=== PATIENT | female | born 1985 | race Caucasian/White ===

== ENCOUNTER → 2018-06-21 | Outpatient (CLI) | payer OTHER | END | disposition home or self-care (01) | LOC: LABWHC1 12:43 | PROVIDERS: ATTEND Obstetrics & Gynecology | DX: Z34.90 Encounter for supervision of normal pregnancy, unspecified, unspecified trimester (principal); Z3A.00 Weeks of gestation of pregnancy not specified | CPT/HCPCS: 36415; 82950 ==

== ENCOUNTER → 2018-07-05 | Outpatient (CLI) | payer OTHER ==
[2018-07-05 12:23] LABS: Glucose 3 Hour, Gest 106 mg/dL
== END | disposition home or self-care (01) ==
LOC: LABWHC1 08:02
PROVIDERS: ATTEND Obstetrics & Gynecology
DX: O99.810 Abnormal glucose complicating pregnancy (principal); Z3A.00 Weeks of gestation of pregnancy not specified
CPT/HCPCS: 36415; 82951; 82952

== ENCOUNTER 2018-09-07 06:09 | Inpatient (IN) | payer OTHER ==
[2018-09-07] MEDS ORDERED: CARBOPROST TROMETHAMINE 250 MCG/ML 1 ML AMP IM PRN (06:31)
[2018-09-07] MEDS ORDERED: OXYTOCIN 10 UNIT/ML 1 ML VIAL IM PRN (06:31)
[2018-09-07] MEDS ORDERED: LIDOCAINE 0.5% (PF) 5 MG/ML (50 ML SDV) SQ PRN (06:31)
[2018-09-07] MEDS ORDERED: TERBUTALINE 1 MG/ML VIAL SQ PRN (06:31)
[2018-09-07] MEDS ORDERED: METHYLERGONOVINE 0.2 MG/ML 1 ML AMP IM PRN (06:31)
[2018-09-07] MEDS ORDERED: OXYTOCIN 20 UNITS/1000 ML NS 1,000 ML IV SCH (06:45)
[2018-09-07] MEDS: LACTATED RINGERS 1,000 ML IV SCH ×3 (06:55→22:19)
[2018-09-07 07:15] LABS: Basophils % (A) 0 %; Eosinophils # (A) 0.2 k/uL (0-0.7); Eosinophils % (A) 1 %; HCT 33.6 % (34.0-46.0); HGB 11.8 gm/dL (11.4-16.0); Lymphocytes # (A) 2.3 k/uL (1.0-4.8); Lymphocytes % (A) 21 %; MCH 30.4 pg (25.0-35.0); MCHC 35.2 g/dL (31.0-37.0); MCV 86.4 fL (80.0-100.0); Mean Platelet Volume 8.6; Monocytes # (A) 0.3 k/uL (0-1.0); Monocytes % (A) 3 %; Neutrophils % (A) 74 %; Platelet Count 168 k/uL (150-450); RBC 3.89 m/uL (3.80-5.40); RDW 14.2 % (11.5-15.5); WBC 10.9 k/uL (3.8-10.6)
[2018-09-07 07:16] VITALS: BMI 34.3
--- NOTE | 2018-09-07 07:44 | P.HPOB ---
History of Present Illness H&P Date: 09/07/18 This is a 33-year-old white female 1 para 0 EDC 09/11/2018 at 39-3/7 weeks' gestation. Patient presents today for induction of labor with reasonably favorable cervix, mildly elevated blood pressures for the past several days. She denies headache visual changes or right upper quadrant pain. Fetus is been active throughout the . Past medical history is significant for "white coat syndrome" with high blood pressures noted in physician offices. She has a history of asthma and depression. Past surgical history breast reconstruction 2002, LEEP procedure 2003, oral surgery 2015. Current medications albuterol inhaler as needed, vitamin daily. ALLERGIES include lactose intolerance, no known medical ALLERGIES. Social history patient is single, she is employed, she lives locally, she has never been a tobacco smoker. She denies alcohol or drug use. Obstetric history is significant for single umbilical artery. Blood type O positive, rubella status immune. VDRL testing, Pap smear, urine culture, gonorrhea and chlamydia cultures, hepatitis B surface antigen, HIV testing all negative. One-hour Glucola elevated, three-hour GTT within normal limits. On exam this is a pleasant young female who is quite anxious, she is 5 foot 4 inches, 200 pounds, blood pressure 143/93 on admission, pulse 92, afebrile. The general physical exam is within normal limits. The chest is clear in all corcoran. Extremities reveal trace edema. Reflexes are normal to plus. Cervix is 3 cm dilated, 60-70% effaced, rather posterior, vertex presentation, -2, soft. Artificial amniorrhexis reveals clear fluid. heart rate is in the 140s with accelerations, consistent with reactive NST. Impression: Advanced maternal age, single umbilical artery, mild hypertension, 39-3/7 weeks intrauterine with reasonably favorable cervix. Plan: Oxytocin per hospital protocol. Close maternal and surveillance. Epidural and or Stadol options have been reviewed with the patient. Anticipate normal spontaneous vaginal delivery. Review of Systems Negative except as in HPI. Constitutional: Reports as per HPI Past Medical History Past Medical History: No Reported History, Asthma Additional Past Medical History / Comment(s): Anxiety History of Any Multi-Drug Resistant Organisms: None Reported Additional Past Surgical History / Comment(s): "breast reduction when young", LEEP Past Anesthesia/Blood Transfusion Reactions: No Reported Reaction Past Psychological History: No Psychological Hx Reported Smoking Status: Never smoker Past Drug Use History: None Reported - Past Family History Mother Family Medical History: Hypertension Father Family Medical History: Cancer Medications and Allergies Home Medications Medication Instructions Recorded Confirmed Type Albuterol Inhaler [Ventolin Hfa .ROUTE 09/07/18 History Inhaler] Ferrous Sulfate [Feosol] 325 mg PO DAILY 09/07/18 09/07/18 History Pnv,Calcium 72/Iron/Folic Acid 1 cap PO DAILY 09/07/18 09/07/18 History [ Plus Tablet] Allergies Allergy/AdvReac Type Severity Reaction Status Date / Time No Known Allergies Allergy Verified 09/07/18 06:24 Exam Vital Signs Temp Pulse Resp BP 09/07/18 06:23 97.4 F L 84 16 143/93 Intake and Output 09/06/18 09/07/18 09/07/18 22:59 06:59 14:59 Other: Weight 90.718 kg C exam under HPI please Results Result Diagrams: 09/07/18 06:45 Abnormal Lab Results - Last 24 Hours (Table) 09/07/18 Range/Units 06:45 WBC 10.9 H (3.8-10.6) k/uL Hct 33.6 L (34.0-46.0) % Neutrophils # 8.0 H (1.3-7.7) k/uL Assessment and Plan Assessment: 39-3/7 weeks intrauterine , mild hypertension, single umbilical artery , advanced maternal age, reasonably favorable cervix. Plan: Oxytocin per hospital protocol. Close maternal and surveillance. Anticipating normal spontaneous vaginal delivery. Time with Patient: Less than 30
[2018-09-07 08:55] LABS: Uric Acid 4.6 mg/dL (3.7-7.4)
[2018-09-07 08:56] LABS: INR 1.1 (<1.2); Partial Thromboplastin Time 25.2 sec (22.0-30.0); Prothrombin Time 10.7 sec (9.0-12.0)
[2018-09-07] MEDS ORDERED: ROPIVACAINE 100 MG, fentaNYL (PF) 200 MCG in SODIUM CHLORIDE 0.9% 76 ML EPIDURAL ONE (15:49)
[2018-09-07] MEDS ORDERED: ceFAZolin IN SWFI 2 GM/20 ML SYRINGE IVP STA (17:40)
[2018-09-07] MEDS ORDERED: fentaNYL (PF) 50 MCG/ML 2 ML AMP ONE ×2 (17:43)
[2018-09-07] MEDS ORDERED: ONDANSETRON 4 MG/2 ML VIAL ONE (17:43)
[2018-09-07] MEDS ORDERED: CHLOROPROCAINE 3% 30 MG/ML 20 ML VIAL ONE (17:43)
[2018-09-07] MEDS ORDERED: MORPHINE SULFATE (PF) 0.3 MG/0.3 ML SYR ONE ×2 (17:43)
[2018-09-07] MEDS ORDERED: ePHEDrine SULFATE/0.9% NACL/PF 50 MG/5 ML SYRINGE IV ONE (17:43)
[2018-09-07] MEDS ORDERED: KETOROLAC 30 MG/ML 1 ML VIAL ONE (17:43)
[2018-09-07] MEDS ORDERED: KETOROLAC 30 MG/ML 1 ML VIAL IVP PRN (18:37)
[2018-09-07] MEDS ORDERED: NALBUPHINE 10 MG/ML VIAL (10ML MDV) IV PRN (18:37)
[2018-09-07] MEDS ORDERED: diphenhydrAMINE 50 MG/ML 1 ML VIAL IVP PRN ×3 (18:37→18:43)
[2018-09-07] MEDS ORDERED: ONDANSETRON 4 MG/2 ML VIAL IVP PRN ×2 (18:37)
[2018-09-07] MEDS ORDERED: diphenhydrAMINE 25 MG CAP PO PRN (18:37)
[2018-09-07] MEDS ORDERED: NALOXONE 0.4 MG/ML 1 ML VIAL IV PRN ×2 (18:37)
[2018-09-07] MEDS ORDERED: ZOLPIDEM 5 MG TAB PO PRN (18:37)
[2018-09-07] MEDS ORDERED: METOCLOPRAMIDE 5 MG/ML 2 ML VIAL IVP PRN (18:37)
[2018-09-07] MEDS ORDERED: diphenhydrAMINE 50 MG CAP PO PRN (18:37)
--- NOTE | 2018-09-07 18:37 | P.OP ---
Date of Procedure: 09/07/18 Preoperative Diagnosis: Arrest of descent at -3 station, single umbilical artery, advanced maternal age , 39-3/7 weeks' gestation, mild hypertension Postoperative Diagnosis: Left occiput transverse position, nuchal cord 2. Procedure(s) Performed: Primary low transverse section Anesthesia: epidural Surgeon: Breann Gage Neurology Technician #1: Taylor Barber Estimated Blood Loss (ml): 600 IV fluids (ml): 600 Urine output (ml): 250 Pathology: other (Placenta) Condition: stable Disposition: PACU Description of Procedure: Arrest of descent is noted, with dilatation also arrested at 5 cm. After several hours of continued observation, decision is made to proceed with primary low transverse section. Antibiotics are given. Epidural is topped off. West catheter placed to direct drainage. The appropriate timeout is performed to assure proper patient and procedural identification. Patient is brought to the operating room and placed in the dorsal supine position with left lateral uterine displacement. The abdomen is prepped and draped in usual sterile fashion. The analgesia is checked and noted to be adequate. A low transverse skin incision is made in this is carried down through the subcutaneous tissue. The fascia is isolated, scored, and extended bilaterally with curved Sigala scissors. Peritoneum is next identified and incised, there is no bowel or bladder involvement. Bladder flap is placed over the dome of the bladder and at all times the bladder is Well from the operative field to avoid bladder and/or ureteral injury. A low transverse uterine incision is made in this is extended with blunt dissection. 's head is delivered in the left occiput transverse position. There is a nuchal cord 2 noted. The patient is officially delivered of a liveborn male at 1800 hrs. The umbilical cord is doubly clamped and ligated, he is handed to waiting nurses for evaluation where scores of 9 and 9 at one and 5 minutes respectively are given. The placenta is delivered manually, it is inspected and noted to be intact with trivascular cord at 1801 hrs. At this time uterus is externalized. Oxytocin is given. Uterus is swept clean with a sterile sponge to avoid any retained products of conception. The uterus is closed in a two-step fashion, first layer running locking, second layer imbricated. Excellent hemostasis is noted. Bilateral tubes and ovaries are inspected and noted to be normal. The uterus abdominal cavity after the abdomen is suctioned with suction on guard. Bilateral gutters are inspected and cleaned. Incision is once again visualized and noted to be hemostatically intact, well approximated, clean and dry. The peritoneum was allowed to close by secondary intention. The fascia is closed in a running stitch of 0 Vicryl suture with over ligation in the midline. Subcutaneous tissue is irrigated, noted to be clean and dry. It is reapproximated with 3-0 Vicryl in a running fashion. 4-0 undyed Vicryl issues for final skin closure. Steri-Strips and Mastisol are applied to the wound. All sponge needle and enhancement counts are correct at the end of the procedure. weighs 7 lbs. 5 oz. Vital signs are stable after the procedure including pulse of 90, blood pressure 133/80, West catheter noted to be draining clear urine. Patient and her are allowed to begin the bonding experience in the LDR. Placenta will be sent to pathology secondary to two-vessel cord. The patient and her are declining circumcision further infant son.
[2018-09-07] MEDS: SENNOSIDES-DOCUSATE SODIUM 1 EACH TAB PO SCH (21:59)
[2018-09-08] MEDS: KETOROLAC 30 MG/ML 1 ML VIAL IVP PRN ×3 (02:46→15:50)
[2018-09-08] MEDS: LACTATED RINGERS 1,000 ML IV SCH (02:47)
[2018-09-08 06:02] LABS: Basophils % (A) 0 %; Eosinophils # (A) 0.1 k/uL (0-0.7); Eosinophils % (A) 0 %; HCT 25.6 % (34.0-46.0); Lymphocytes # (A) 1.8 k/uL (1.0-4.8); Lymphocytes % (A) 15 %; MCH 31.2 pg (25.0-35.0); MCHC 35.4 g/dL (31.0-37.0); Mean Platelet Volume 9.1; Monocytes # (A) 0.4 k/uL (0-1.0); Monocytes % (A) 4 %; Neutrophils # (A) 9.4 k/uL (1.3-7.7); Neutrophils % (A) 80 %; Platelet Count 145 k/uL (150-450); RBC 2.91 m/uL (3.80-5.40); RDW 14.3 % (11.5-15.5); WBC 11.7 k/uL (3.8-10.6)
[2018-09-08 06:05] LABS: HGB 9.1 gm/dL (11.4-16.0)
--- NOTE | 2018-09-08 07:05 | P.PN ---
Progress Note - Text Postop day 1 from under spinal anesthesia with epidural morphine given for postop pain management. Patient is doing well. Pain is well controlled. On visual analog scale 3/10 Mild itching present No nausea or vomiting reported. No Headache or weakness and numbness in the legs. No complications from epidural anesthesia/analgesia.
[2018-09-08] MEDS: SENNOSIDES-DOCUSATE SODIUM 1 EACH TAB PO SCH ×2 (08:50→22:42)
--- NOTE | 2018-09-08 11:04 | P.PN ---
Subjective Progress Note Date: 09/08/18 Principal diagnosis: Postoperative day #1 Slept well. Minimal to moderate lochia rubra. Pain well controlled. Ambulating and voiding without difficulties Objective - Vital Signs Vital signs: Vital Signs Temp 97.7 F 09/08/18 08:00 Pulse 100 09/08/18 08:00 Resp 16 09/08/18 09:00 BP 138/74 09/08/18 08:00 Pulse Ox 99 09/08/18 08:00 Intake & Output 09/07/18 09/08/18 09/08/18 18:59 06:59 18:59 Output Total 1000 1650 Balance -1000 -1650 Output: Urine 400 1050 Uretheral (West) 600 Estimated Blood Loss 600 600 Other: # Voids 1 - Constitutional General appearance: Present: average body habitus, cooperative - EENT Eyes: Present: PERRLA ENT: Present: hearing grossly normal - Neck Neck: Present: normal ROM - Respiratory Respiratory: bilateral: CTA - Cardiovascular Rhythm: regular - Gastrointestinal Gastrointestinal Comment(s): Incision clean and dry, intact, Steri-Strips applied. Fundus firm, midline, symmetric, 18 week size. - Integumentary Integumentary: Present: normal - Neurologic Neurologic: Present: CNII-XII intact - Musculoskeletal Musculoskeletal: Present: gait normal - Psychiatric Psychiatric: Present: A&O x's 3, appropriate affect, intact judgment & insight - Labs CBC & Chem 7: 09/08/18 05:45 Labs: Abnormal Lab Results - Last 24 Hours (Table) 09/08/18 Range/Units 05:45 WBC 11.7 H (3.8-10.6) k/uL RBC 2.91 L (3.80-5.40) m/uL Hgb 9.1 L D (11.4-16.0) gm/dL Hct 25.6 L (34.0-46.0) % Plt Count 145 L (150-450) k/uL Neutrophils # 9.4 H (1.3-7.7) k/uL Assessment and Plan Assessment: Doing well day #1 Plan: Advance to regular diet. May DC IV. Begin ferrous sulfate twice daily. May shower. Likely discharge home tomorrow. Patient and her declining option for circumcision. Time with Patient: Less than 30
[2018-09-08] MEDS: HYDROcodone/APAP 5-325MG 1 EACH TAB PO PRN ×2 (12:49→18:44)
[2018-09-08] MEDS: FERROUS SULFATE 325 MG TAB PO SCH (16:00)
[2018-09-08] MEDS: IBUPROFEN 600 MG TAB PO PRN (22:40)
[2018-09-09] MEDS: HYDROcodone/APAP 5-325MG 1 EACH TAB PO PRN ×4 (02:08→23:45)
[2018-09-09] MEDS: SENNOSIDES-DOCUSATE SODIUM 1 EACH TAB PO SCH ×2 (07:59→23:45)
--- NOTE | 2018-09-09 10:22 | P.PNOBGPC ---
Subjective - Subjective Patient reports: Reports appetite normal, Reports voiding normally, Reports pain well controlled, Reports ambulating normally : doing well, other (Having some difficulty with nursing) Objective - Vital Signs Latest vital signs: Vital Signs Temp Pulse Resp BP Pulse Ox 09/09/18 08:00 98.1 F 80 15 150/78 09/09/18 00:00 98.2 F 78 15 149/84 09/08/18 15:37 97.8 F 80 16 145/73 09/08/18 14:00 97.8 F 80 16 145/73 98 09/08/18 12:00 89 16 134/72 - Exam Extremities: Present: normal Abdomen: Present: normal appearance, soft. Absent: distention, tenderness Incision: Present: normal, dry, intact Uterus: Present: normal, firm (Uterine fundus as tonic and appropriately tender just below the umbilicus.) Assessment and Plan (1) Status post section Current Visit: Yes Status: Acute Code(s): Z98.891 - HISTORY OF UTERINE SCAR FROM PREVIOUS SURGERY SNOMED Code(s): 081865784 Plan: Continue routine and postoperative care. Possible discharge home tomorrow pending progress with breast-feeding. I have encouraged her to ambulate in the hallways routinely.
[2018-09-09] MEDS: IBUPROFEN 600 MG TAB PO PRN ×2 (12:14→22:06)
[2018-09-09] MEDS: FERROUS SULFATE 325 MG TAB PO SCH ×2 (12:17→17:42)
[2018-09-09] MEDS: LABETALOL 100 MG TAB PO SCH (17:43)
[2018-09-09 23:56] LABS: Basophils % (A) 0 %; Eosinophils # (A) 0.1 k/uL (0-0.7); Eosinophils % (A) 1 %; HGB 8.7 gm/dL (11.4-16.0); Lymphocytes # (A) 1.3 k/uL (1.0-4.8); Lymphocytes % (A) 10 %; MCH 29.9 pg (25.0-35.0); MCHC 33.5 g/dL (31.0-37.0); MCV 89.1 fL (80.0-100.0); Mean Platelet Volume 8.7; Monocytes # (A) 0.3 k/uL (0-1.0); Monocytes % (A) 3 %; Neutrophils # (A) 10.9 k/uL (1.3-7.7); Neutrophils % (A) 86 %; Platelet Count 172 k/uL (150-450); RBC 2.92 m/uL (3.80-5.40); RDW 14.4 % (11.5-15.5); WBC 12.8 k/uL (3.8-10.6)
[2018-09-10] MEDS: LABETALOL 100 MG TAB PO SCH ×2 (08:14→21:09)
[2018-09-10] MEDS: HYDROcodone/APAP 5-325MG 1 EACH TAB PO PRN ×3 (08:15→21:12)
[2018-09-10] MEDS: FERROUS SULFATE 325 MG TAB PO SCH ×2 (08:15→21:09)
--- NOTE | 2018-09-10 11:46 | P.PNOBGPC ---
Subjective - Subjective Interval history: Fever and generalized malaise from last evening have resolved. Denies any further symptoms of fever. Patient reports: Reports appetite normal, Reports voiding normally, Reports pain well controlled, Reports ambulating normally [place]: doing well Objective - Vital Signs Latest vital signs: Vital Signs Temp Pulse Resp BP BP Pulse Ox 09/10/18 08:00 97.8 F 79 15 143/77 09/10/18 02:00 99.7 F H 09/09/18 23:00 101.3 F H 96 15 164/85 98 09/09/18 22:07 100.5 F H 09/09/18 17:00 168/101 165/93 09/09/18 16:45 98.9 F 84 15 156/83 100 - Exam Extremities: Present: normal Abdomen: Present: normal appearance, soft. Absent: distention, tenderness Incision: Present: normal, dry, intact Uterus: Present: normal, firm (The uterine fundus as tonic and appropriately tender below the umbilicus.) - Labs Labs: Abnormal Lab Results - Last 24 Hours (Table) 09/09/18 Range/Units 23:44 WBC 12.8 H (3.8-10.6) k/uL RBC 2.92 L (3.80-5.40) m/uL Hgb 8.7 L (11.4-16.0) gm/dL Hct 26.0 L (34.0-46.0) % Neutrophils # 10.9 H (1.3-7.7) k/uL Assessment and Plan (1) Status post section Current Visit: Yes Status: Acute Code(s): Z98.891 - HISTORY OF UTERINE SCAR FROM PREVIOUS SURGERY SNOMED Code(s): 185866505 Plan: The patient's fever last evening is likely to be attributed to either a viral syndrome that has resolved or perhaps the earliest signs of her milk coming in. In either case, white count was normal and no further symptoms exist at this time. The infant is to remain in the hospital for the diagnosis of jaundice. As result, the patient is requesting to remain in the hospital for the fourth day allowed after . She will be discharged home tomorrow pending no complications. Otherwise continue routine postoperative care.
[2018-09-10] MEDS: IBUPROFEN 600 MG TAB PO PRN (19:37)
[2018-09-10] MEDS: SENNOSIDES-DOCUSATE SODIUM 1 EACH TAB PO SCH (23:13)
[2018-09-11] MEDS ORDERED: LABETALOL 200 MG TAB PO STA (04:12)
[2018-09-11] MEDS: SENNOSIDES-DOCUSATE SODIUM 1 EACH TAB PO SCH ×3 (04:13→21:00)
[2018-09-11] MEDS: LABETALOL 100 MG TAB PO SCH (04:27)
[2018-09-11] MEDS: LABETALOL 200 MG TAB PO SCH ×2 (07:49→21:02)
--- NOTE | 2018-09-11 07:58 | P.PN ---
Subjective Progress Note Date: 09/11/18 Principal diagnosis: Postoperative day #4. Patient has complained of a headache and off through the weekend. Blood pressure this morning elevated. No headache this morning, no visual changes or right upper quadrant pain. Major complaint is fatigue. Objective - Vital Signs Vital signs: Vital Signs Temp 98.0 F 09/11/18 00:00 Pulse 74 09/11/18 00:00 Resp 16 09/11/18 00:00 BP 147/81 09/11/18 04:00 Pulse Ox 98 09/09/18 23:00 - Constitutional General appearance: Present: average body habitus, cooperative - EENT ENT: Present: hearing grossly normal - Respiratory Respiratory: bilateral: CTA - Cardiovascular Rhythm: regular - Gastrointestinal Gastrointestinal Comment(s): Fundus firm and in the midline, symmetric and 18 week size, nontender. Incision clean and dry, well approximated. - Integumentary Integumentary: Present: normal - Neurologic Neurologic: Present: CNII-XII intact - Musculoskeletal Musculoskeletal Comment(s): Reflexes +1, no peripheral edema. Musculoskeletal: Present: gait normal, strength equal bilaterally - Psychiatric Psychiatric: Present: A&O x's 3, appropriate affect, intact judgment & insight - Labs CBC & Chem 7: 09/09/18 23:44 Assessment and Plan Assessment: Postoperative day #4. Continued hypertension. Plan: We will increase labetalol dose at this time to 200 mg twice a day. Continue care. Possible discharge home tomorrow pending blood pressure. Ferrous sulfate twice daily for postoperative anemia. Time with Patient: Less than 30
[2018-09-11] MEDS: ACETAMINOPHEN TAB 325 MG TAB PO PRN (08:16)
[2018-09-11] MEDS: FERROUS SULFATE 325 MG TAB PO SCH ×2 (14:04→20:59)
[2018-09-11] MEDS: HYDROcodone/APAP 5-325MG 1 EACH TAB PO PRN (14:05)
[2018-09-11] MEDS ORDERED: hydrALAZINE HCL 20 MG/ML 1 ML VIAL IVP PRN (17:22)
--- NOTE | 2018-09-11 17:26 | P.CONS ---
History of Present Illness - Reason for Consult Consult date: 09/11/18 Medical management - Chief Complaint Elevated blood pressure - History of Present Illness This is a 33-year-old female with no significant past medical history was currently admitted to the hospital postoperative day #4 status post section. Patient has been doing fairly well post surgery. She was noted to have an elevated blood pressure and her systolic blood pressure is been running in the 150s to 160s. She was started on labetalol 100 mg on the and that was increased to 200 mg twice a day this morning. Her blood pressure is still not well controlled. Patient was complaining of an intermittent headache that she describes as chronic. She denies nausea or vomiting. No vision change. She is not planning on breast-feeding her baby. Review of Systems Review of system: 14 points review of systems were obtained and were negative except to what were mentioned in the HPI. Past Medical History Past Medical History: No Reported History, Asthma Additional Past Medical History / Comment(s): Anxiety History of Any Multi-Drug Resistant Organisms: None Reported Additional Past Surgical History / Comment(s): "breast reduction when young", LEEP Past Anesthesia/Blood Transfusion Reactions: No Reported Reaction Past Psychological History: No Psychological Hx Reported Smoking Status: Never smoker Past Drug Use History: None Reported - Past Family History Mother Family Medical History: Hypertension Father Family Medical History: Cancer Medications and Allergies Home Medications Medication Instructions Recorded Confirmed Type Albuterol Inhaler [Ventolin Hfa .ROUTE 09/07/18 History Inhaler] Ferrous Sulfate [Feosol] 325 mg PO DAILY 09/07/18 09/07/18 History Pnv,Calcium 72/Iron/Folic Acid 1 cap PO DAILY 09/07/18 09/07/18 History [ Plus Tablet] Allergies Allergy/AdvReac Type Severity Reaction Status Date / Time No Known Allergies Allergy Verified 09/07/18 06:24 Physical Exam Vitals: Vital Signs Temp Pulse Resp BP Pulse Ox 09/11/18 09:47 147/89 09/11/18 07:45 98.4 F 83 18 168/95 100 09/11/18 04:00 147/81 09/11/18 00:00 98.0 F 74 16 162/75 General: The patient is awake and alert, in no distress Eye: there is normal conjunctiva bilaterally. Neck: The neck is supple, there is no JVD. Cardiovascular: Normal S1-S2, no S3-S4, no murmurs. Respiratory: Lungs clear to auscultation bilaterally Gastrointestinal: Abdomen is soft, nontender Musculoskeletal: There is no pedal edema. Neurological:. Speech is normal. Skin: Skin is warm and dry Results CBC & Chem 7: 09/09/18 23:44 Assessment and Plan Assessment: 1. Hypertension: Noted . Patient was started on labetalol 100 mg twice a day that was increased today to 200 mg twice a day. I agree with current management. We will continue to monitor blood pressure closely. I advised nursing staff to check manual blood pressures to confirm readings. I discontinued ibuprofen and counseled the patient extensively on avoiding NSAIDs. I would obtain CMP. I ordered IV hydralazine every 6 hours as needed for systolic blood pressure greater than 165. We will continue to monitor closely. 2. Postoperative day #4 status post section, management per CRYPTOGRAPHY TEACHER Thank you very much for the consultation. We will continue to follow up on the patient with you closely.
[2018-09-11 18:18] LABS: Chloride 102 mmol/L (98-107)
[2018-09-11 18:21] LABS: ALT 21 U/L (9-52); AST 19 U/L (14-36); Albumin 3.3 g/dL (3.5-5.0); Alkaline Phosphatase 95 U/L (38-126); Anion Gap 9 mmol/L; Blood Urea Nitrogen 11 mg/dL (7-17); Calcium 9.4 mg/dL (8.4-10.2); Carbon Dioxide 26 mmol/L (22-30); Glucose 109 mg/dL (74-99); Potassium 4.4 mmol/L (3.5-5.1); Sodium 137 mmol/L (137-145); Total Bilirubin 0.4 mg/dL (0.2-1.3); Total Protein 6.2 g/dL (6.3-8.2)
[2018-09-11] MEDS ORDERED: ACETAMINOPHEN IV (For NPO) 1,000 MG in EMPTY BAG 1 BAG IVPB ONE (20:00)
[2018-09-11 20:21] LABS: Basophils % (A) 0 %; Eosinophils # (A) 0.2 k/uL (0-0.7); Eosinophils % (A) 2 %; HCT 26.3 % (34.0-46.0); HGB 9.1 gm/dL (11.4-16.0); Lymphocytes # (A) 1.3 k/uL (1.0-4.8); Lymphocytes % (A) 11 %; MCH 31.2 pg (25.0-35.0); MCHC 34.6 g/dL (31.0-37.0); MCV 90.2 fL (80.0-100.0); Mean Platelet Volume 7.9; Monocytes # (A) 0.4 k/uL (0-1.0); Monocytes % (A) 4 %; Neutrophils # (A) 9.2 k/uL (1.3-7.7); Neutrophils % (A) 82 %; Platelet Count 231 k/uL (150-450); RBC 2.92 m/uL (3.80-5.40); RDW 14.1 % (11.5-15.5); WBC 11.1 k/uL (3.8-10.6)
[2018-09-11 20:48] LABS: Appearance,Urine Cloudy (Clear); Bacteria,Urine Rare /hpf; Bilirubin,Urine Negative (Negative); Blood,Urine Large (Negative); Budding Yeast,Urine Occasional /hpf; Color,Urine Yellow; Glucose,Urine (UA) Negative (Negative); Ketones,Urine Negative (Negative); Leukocyte Esterase,Urine Large (Negative); Mucus,Urine Rare /hpf; Nitrite,Urine Negative (Negative); Protein,Urine Trace (Negative); RBC,Urine 11 /hpf (0-5); Specific Gravity,Urine 1.006 (1.001-1.035); Squamous Epithelial Cell,Urine 3 /hpf (0-4); Urobilinogen,Urine <2.0 mg/dL (<2.0); WBC,Urine 98 /hpf (0-5)
[2018-09-11] MEDS ORDERED: LACTATED RINGERS 1,000 ML IV SCH (22:00)
[2018-09-12] MEDS: HYDROcodone/APAP 5-325MG 1 EACH TAB PO PRN ×4 (04:39→19:56)
[2018-09-12] MEDS ORDERED: SODIUM CHLORIDE 0.9% 500 ML 500 ML IV ONE (07:22)
[2018-09-12 08:26] LABS: Basophils % (A) 0 %; Eosinophils # (A) 0.1 k/uL (0-0.7); Eosinophils % (A) 1 %; HCT 27.4 % (34.0-46.0); HGB 9.5 gm/dL (11.4-16.0); Lymphocytes # (A) 1.3 k/uL (1.0-4.8); Lymphocytes % (A) 14 %; MCH 31.2 pg (25.0-35.0); MCHC 34.6 g/dL (31.0-37.0); MCV 90.3 fL (80.0-100.0); Mean Platelet Volume 8.5; Monocytes # (A) 0.3 k/uL (0-1.0); Monocytes % (A) 4 %; Neutrophils # (A) 7.1 k/uL (1.3-7.7); Neutrophils % (A) 80 %; Platelet Count 241 k/uL (150-450); RBC 3.04 m/uL (3.80-5.40); RDW 14.1 % (11.5-15.5); WBC 8.9 k/uL (3.8-10.6)
--- NOTE | 2018-09-12 08:26 | P.PN ---
Subjective Progress Note Date: 09/12/18 Principal diagnosis: Urosepsis Patient is feeling well this morning. She had a temperature of 101 and 101.5 last night. She was noted to be tachycardic with heart rate in the 90s. She was given 1 time IV bolus of 1000 ml LR. Urinalysis showed evidence of UTI. No antibiotic was administered as of yet. Patient herself denies any fevers or chills this morning area and no headache. Objective - Vital Signs Vital signs: Vital Signs Temp 98.8 F 09/12/18 04:00 Pulse 86 09/12/18 04:00 Resp 16 09/12/18 04:00 BP 156/78 09/12/18 04:01 Pulse Ox 100 09/11/18 07:45 - Exam General: The patient is awake and alert, in no distress Eye: there is normal conjunctiva bilaterally. Neck: The neck is supple, there is no JVD. Cardiovascular: Normal S1-S2, no S3-S4, no murmurs. Respiratory: Lungs clear to auscultation bilaterally Gastrointestinal: Abdomen is soft, nontender Musculoskeletal: There is no pedal edema. Neurological:. Speech is normal. Skin: Skin is warm and dry. incision site appeared healing well with no evidence of infection - Labs CBC & Chem 7: 09/11/18 20:04 09/11/18 17:55 Labs: Abnormal Lab Results - Last 24 Hours (Table) 09/11/18 09/11/18 09/11/18 Range/Units 17:55 20:04 20:35 WBC 11.1 H (3.8-10.6) k/uL RBC 2.92 L (3.80-5.40) m/uL Hgb 9.1 L (11.4-16.0) gm/dL Hct 26.3 L (34.0-46.0) % Neutrophils # 9.2 H (1.3-7.7) k/uL Glucose 109 H (74-99) mg/dL Total Protein 6.2 L (6.3-8.2) g/dL Albumin 3.3 L (3.5-5.0) g/dL Urine Appearance Cloudy H (Clear) Urine Protein Trace H (Negative) Urine Blood Large H (Negative) Ur Leukocyte Esterase Large H (Negative) Urine RBC 11 H (0-5) /hpf Urine WBC 98 H (0-5) /hpf Urine Bacteria Rare H (None) /hpf Urine Mucus Rare H (None) /hpf Urine Yeast (Budding) Occasional H (None) /hpf Microbiology - Last 24 Hours (Table) 09/11/18 20:35 Urine Culture - Preliminary Urine,Clean Catch Assessment and Plan Assessment: 1. UTI with urosepsis: Without septic shock. I would start patient on IV ceftriaxone 1 g daily. IV fluid with normal saline under the med per hour. Patient received one-time bolus last night. Awaiting blood culture results. Repeat CBC and lactic acid this morning. Continue supportive care. Monitor for fevers. 2. Hypertension: Noted . Patient was started on labetalol 100 mg twice a day that was increased today to 200 mg twice a day. I agree with current management. We will continue to monitor blood pressure closely. I advised nursing staff to check manual blood pressures to confirm readings. I discontinued ibuprofen and counseled the patient extensively on avoiding NSAIDs. I ordered IV hydralazine every 6 hours as needed for systolic blood pressure greater than 165. Patient received one-time dose of IV hydralazine last night We will continue to monitor closely. I would not do any changes on her Levbid to low dose at this time 3. Postoperative day #5 status post section, management per FRESH FOODS TECHNICIAN Patient was updated about her current clinical condition. Plan of care discussed with nursing staff at bedside. All of patient's questions answered to her satisfaction. Thank you very much for the consultation. We will continue to follow up on the patient with you closely.
[2018-09-12] MEDS: FERROUS SULFATE 325 MG TAB PO SCH ×2 (08:29→19:11)
[2018-09-12] MEDS: SODIUM CHLORIDE 0.9% 1,000 ML IV SCH ×2 (08:31→19:06)
[2018-09-12] MEDS: SENNOSIDES-DOCUSATE SODIUM 1 EACH TAB PO SCH ×2 (08:34→19:56)
[2018-09-12] MEDS: LABETALOL 200 MG TAB PO SCH ×2 (08:34→20:54)
--- NOTE | 2018-09-12 09:45 | P.PN ---
Subjective Progress Note Date: 09/12/18 Principal diagnosis: Postoperative day #5, status post section. Gestational hypertension. Slept well. Intermittent mild headache, none now. Minimal lochia rubra. Pain well controlled. No complaints. Objective - Vital Signs Vital signs: Vital Signs Temp 98.8 F 09/12/18 04:00 Pulse 86 09/12/18 04:00 Resp 16 09/12/18 04:00 BP 156/78 09/12/18 04:01 Pulse Ox 100 09/11/18 07:45 - Constitutional General appearance: Present: average body habitus, cooperative - EENT ENT: Present: hearing grossly normal - Neck Neck: Present: normal ROM - Respiratory Respiratory: bilateral: CTA - Cardiovascular Rhythm: regular - Gastrointestinal Gastrointestinal Comment(s): Incision clean and dry, intact, Steri-Strips applied. Fundus firm, midline, symmetric, 16-18 weeks size, nontender. - Integumentary Integumentary: Present: normal - Neurologic Neurologic: Present: CNII-XII intact - Musculoskeletal Musculoskeletal: Present: gait normal, strength equal bilaterally - Psychiatric Psychiatric: Present: A&O x's 3, appropriate affect, intact judgment & insight - Labs CBC & Chem 7: 09/12/18 08:06 09/11/18 17:55 Labs: Abnormal Lab Results - Last 24 Hours (Table) 09/11/18 09/11/18 09/11/18 Range/Units 17:55 20:04 20:35 WBC 11.1 H (3.8-10.6) k/uL RBC 2.92 L (3.80-5.40) m/uL Hgb 9.1 L (11.4-16.0) gm/dL Hct 26.3 L (34.0-46.0) % Neutrophils # 9.2 H (1.3-7.7) k/uL Glucose 109 H (74-99) mg/dL Total Protein 6.2 L (6.3-8.2) g/dL Albumin 3.3 L (3.5-5.0) g/dL Urine Appearance Cloudy H (Clear) Urine Protein Trace H (Negative) Urine Blood Large H (Negative) Ur Leukocyte Esterase Large H (Negative) Urine RBC 11 H (0-5) /hpf Urine WBC 98 H (0-5) /hpf Urine Bacteria Rare H (None) /hpf Urine Mucus Rare H (None) /hpf Urine Yeast (Budding) Occasional H (None) /hpf 09/12/18 Range/Units 08:06 WBC (3.8-10.6) k/uL RBC 3.04 L (3.80-5.40) m/uL Hgb 9.5 L (11.4-16.0) gm/dL Hct 27.4 L (34.0-46.0) % Neutrophils # (1.3-7.7) k/uL Glucose (74-99) mg/dL Total Protein (6.3-8.2) g/dL Albumin (3.5-5.0) g/dL Urine Appearance (Clear) Urine Protein (Negative) Urine Blood (Negative) Ur Leukocyte Esterase (Negative) Urine RBC (0-5) /hpf Urine WBC (0-5) /hpf Urine Bacteria (None) /hpf Urine Mucus (None) /hpf Urine Yeast (Budding) (None) /hpf Microbiology - Last 24 Hours (Table) 09/11/18 20:35 Urine Culture - Preliminary Urine,Clean Catch Assessment and Plan Assessment: Postoperative day #5, gestational hypertension, improving. Appreciate medicines consult. Plan: Continue labetalol 200 mg twice a day. Continue antibiotics until urine culture. Increase activity. Likely discharge home tomorrow. Time with Patient: Less than 30
[2018-09-12] MEDS ORDERED: INFLUENZA VACCINE (6 MOS+) 60 MCG/0.5 ML SYRINGE IM ONE (13:36)
[2018-09-12] MEDS: ACETAMINOPHEN TAB 325 MG TAB PO PRN (16:15)
[2018-09-12] MEDS ORDERED: hydrALAZINE HCL 50 MG TAB PO STA (22:47)
[2018-09-12] MEDS ORDERED: hydrALAZINE HCL 25 MG TAB PO STA (22:48)
[2018-09-13] MEDS ORDERED: hydrALAZINE HCL 25 MG TAB PO STA (04:01)
[2018-09-13] MEDS: SODIUM CHLORIDE 0.9% 1,000 ML IV SCH (05:08)
[2018-09-13] MEDS: HYDROcodone/APAP 5-325MG 1 EACH TAB PO PRN ×2 (05:12→12:43)
[2018-09-13 07:54] VITALS: BP 143/85; PULSE 84; RESP 18; TEMP 98.4
[2018-09-13 07:54] LABS: Basophils % (A) 0 %; Eosinophils # (A) 0.2 k/uL (0-0.7); Eosinophils % (A) 2 %; HGB 9.1 gm/dL (11.4-16.0); Lymphocytes # (A) 1.2 k/uL (1.0-4.8); Lymphocytes % (A) 12 %; MCH 30.5 pg (25.0-35.0); MCHC 33.5 g/dL (31.0-37.0); Mean Platelet Volume 7.7; Monocytes # (A) 0.4 k/uL (0-1.0); Monocytes % (A) 4 %; Neutrophils % (A) 80 %; Platelet Count 231 k/uL (150-450); RBC 2.97 m/uL (3.80-5.40); RDW 14.1 % (11.5-15.5)
--- NOTE | 2018-09-13 08:13 | P.DS ---
Providers Date of admission: 09/07/18 06:09 Expected date of discharge: 09/13/18 Attending physician: Breann Gage Consults: 09/11/18 17:02 Consult Physician Stat Consulting Provider: Maisha Gonzalez Consult Reason/Comments: elevated blood pressure Do you want consulting provider notified?: Already Contacted Primary care physician: Stated None Hospital Course: This is a 33-year-old white female 1 para 0 EDC 09/11/2018 at 39-3/7 weeks' gestation. Patient presented for induction with favorable cervix, was essentially unremarkable with the exception of a single umbilical artery. Blood type O positive, group B strep cultures negative, rubella status immune. Please see dictated history and physical for details. Admitting blood pressure 143/93, patient had been normotensive throughout the . She progressed through labor and had arrest of dilatation and descent, and therefore underwent a primary low transverse section. She gave to a liveborn male with scores of 9 and 9 at one and 5 minutes respectively. The was a nuchal cord 2 noted. Estimated blood loss 600 mL's. weighed 7 lbs. 5 oz. or 3320 g, please see dictated operative note for details. The postoperative course was complicated by elevated blood pressures. At one time blood pressure was 180s over 90s. She was started on labetalol 100 mg twice daily, increased to 200 mg twice daily. Consultation was performed with medical physicians in-house, and the patient was seen. She was given hydralazine IV push twice for elevated blood pressures. Labs have remained normal with a exception of anemia. This morning the incision is clean and dry, intact with Steri-Strips applied. Fundus is firm. Fundus is nontender. Extremities are negative. She has normal reflexes and minimal edema. Chest is clear in all corcoran. Urine culture has grown mixed mckenna, patient is on cephalosporins. Through the night blood pressures were still slightly high, labetalol has been increased to 300 mg twice daily. Patient in my judgment is in good condition for discharge home with close follow-up. She will continue Keflex 500 mg for an additional 5 days. She will continue labetalol 300 mg twice daily. She will follow-up with her primary care physician Dr. Spangler and 3 days. She will obtain a blood pressure cuff and take her blood pressures twice daily and write them down. She will call me if systolics are greater than 160 or diastolics greater than 95. She will call with any fevers shakes or chills, foul smelling or copious lochia, with any drainage or redness of the incision, with any headache visual changes or right upper quadrant pain. [place] infant will follow-up with customer support consultant as recommended. We have discussed options for contraception and this will be discussed further in the office. Patient Condition at Discharge: Good Plan - Discharge Summary Discharge Rx Participant: Yes New Discharge Prescriptions: No Action Ferrous Sulfate [Feosol] 325 mg PO DAILY Pnv,Calcium 72/Iron/Folic Acid [ Plus Tablet] 1 cap PO DAILY Albuterol Inhaler [Ventolin Hfa Inhaler] .ROUTE Discharge Medication List Albuterol Inhaler [Ventolin Hfa Inhaler] .ROUTE 09/07/18 [History] Ferrous Sulfate [Feosol] 325 mg PO DAILY 09/07/18 [History] Pnv,Calcium 72/Iron/Folic Acid [ Plus Tablet] 1 cap PO DAILY 09/07/18 [ History] Follow up Appointment(s)/Referral(s): Breann Gage MD [STAFF PHYSICIAN] - 1 Week
[2018-09-13] MEDS: FERROUS SULFATE 325 MG TAB PO SCH (08:15)
[2018-09-13] MEDS: SENNOSIDES-DOCUSATE SODIUM 1 EACH TAB PO SCH (08:16)
[2018-09-13 08:21] LABS: ALT 17 U/L (9-52); AST 15 U/L (14-36); Albumin 2.7 g/dL (3.5-5.0); Alkaline Phosphatase 85 U/L (38-126); Anion Gap 9 mmol/L; Blood Urea Nitrogen 8 mg/dL (7-17); Calcium 8.5 mg/dL (8.4-10.2); Carbon Dioxide 20 mmol/L (22-30); Chloride 108 mmol/L (98-107); Glucose 89 mg/dL (74-99); Sodium 137 mmol/L (137-145); Total Bilirubin 0.4 mg/dL (0.2-1.3); Total Protein 5.5 g/dL (6.3-8.2)
[2018-09-13] MEDS ORDERED: LABETALOL 100 MG TAB PO SCH (09:00)
--- NOTE | 2018-09-13 09:22 | P.PN ---
Subjective Progress Note Date: 09/13/18 Principal diagnosis: Urosepsis Patient is feeling well this morning. She denies any headache this morning. Her headache yesterday resolved and was attributed to caffeine withdrawal. White count is trending down. Blood pressure is still slightly elevated Objective - Vital Signs Vital signs: Vital Signs Temp 98.4 F 09/13/18 07:51 Pulse 84 09/13/18 07:51 Resp 18 09/13/18 07:51 BP 143/85 09/13/18 07:51 Pulse Ox 98 09/13/18 07:51 - Exam General: The patient is awake and alert, in no distress Eye: there is normal conjunctiva bilaterally. Neck: The neck is supple, there is no JVD. Cardiovascular: Normal S1-S2, no S3-S4, no murmurs. Respiratory: Lungs clear to auscultation bilaterally Gastrointestinal: Abdomen is soft, nontender Musculoskeletal: There is no pedal edema. Neurological:. Speech is normal. Skin: Skin is warm and dry. incision site appeared healing well with no evidence of infection - Labs CBC & Chem 7: 09/13/18 07:30 09/13/18 07:30 Labs: Abnormal Lab Results - Last 24 Hours (Table) 09/13/18 09/13/18 Range/Units 07:30 07:30 RBC 2.97 L (3.80-5.40) m/uL Hgb 9.1 L (11.4-16.0) gm/dL Hct 27.0 L (34.0-46.0) % Neutrophils # 8.0 H (1.3-7.7) k/uL Chloride 108 H (98-107) mmol/L Carbon Dioxide 20 L (22-30) mmol/L Total Protein 5.5 L (6.3-8.2) g/dL Albumin 2.7 L (3.5-5.0) g/dL Microbiology - Last 24 Hours (Table) 09/11/18 20:35 Urine Culture - Preliminary Urine,Clean Catch Group D Enterococcus 09/11/18 20:26 Blood Culture - Preliminary Blood No Growth after 24 hours 09/11/18 20:04 Blood Culture - Preliminary Blood No Growth after 24 hours Assessment and Plan Assessment: 1. UTI with urosepsis: Without septic shock. Started on IV ceftriaxone 1 g daily. Enterococcus insignificant growth. White count is trending down. Lactic acid was normal. Will finish 5 days course of antibiotic with Keflex 3 times a day. 2. Hypertension: Noted . Patient was started on DiaBeta alone and was titrated up gradually. She will be discharged home on labetalol 300 mg twice a day. I discontinued ibuprofen and counseled the patient extensively on avoiding NSAIDs. 3. Postoperative day #6 status post section, management per STRIKE PLATE ATTACHER Patient will be discharged home today. She was advised to follow-up with her PCP within the next 3 days. She was advised to check her blood pressure 3-4 times a day at home. She may still need further adjustment in her blood pressure medication regimen.
== END 2018-09-13 13:30 | disposition home or self-care (01) | DRG 787 ==
LOC: 4FBP 06:09
PROVIDERS: ADMIT Obstetrics & Gynecology; ATTEND Obstetrics & Gynecology
PROC: 3E033VJ Introduction of Other Hormone into Peripheral Vein, Percutaneous Approach (ICD-10-PCS; 2018-09-07)
PROC: 10907ZC Drainage of Amniotic Fluid, Therapeutic from Products of Conception, Via Natural or Artificial Opening (ICD-10-PCS; 2018-09-07)
PROC: 00HU33Z Insertion of Infusion Device into Spinal Canal, Percutaneous Approach (ICD-10-PCS; 2018-09-07)
PROC: 3E0R3BZ Introduction of Anesthetic Agent into Spinal Canal, Percutaneous Approach (ICD-10-PCS; 2018-09-07)
PROC: 10D00Z1 Extraction of Products of Conception, Low, Open Approach (ICD-10-PCS; principal; 2018-09-07 18:13)
DX: O13.4 Gestational [pregnancy-induced] hypertension without significant proteinuria, complicating childbirth (principal); F15.93 Other stimulant use, unspecified with withdrawal; Z37.0 Single live birth; O99.02 Anemia complicating childbirth; O23.43 Unspecified infection of urinary tract in pregnancy, third trimester; O62.1 Secondary uterine inertia; O62.0 Primary inadequate contractions; E73.9 Lactose intolerance, unspecified; O69.81X0 Labor and delivery complicated by cord around neck, without compression, not applicable or unspecified; O69.89X0 Labor and delivery complicated by other cord complications, not applicable or unspecified; D64.9 Anemia, unspecified; O99.52 Diseases of the respiratory system complicating childbirth; J45.909 Unspecified asthma, uncomplicated; O99.284 Endocrine, nutritional and metabolic diseases complicating childbirth; O75.89 Other specified complications of labor and delivery; O99.344 Other mental disorders complicating childbirth; F32.9 Major depressive disorder, single episode, unspecified; R51 Headache; Z3A.39 39 weeks gestation of pregnancy; Z82.49 Family history of ischemic heart disease and other diseases of the circulatory system; Z80.9 Family history of malignant neoplasm, unspecified
CPT/HCPCS: 80053; 81001; 83605; 83615; 84450; 84460; 84550; 85025; 85610; 85730; 86850; 86900; 86901; 87040; 87077; 87086; 87186; 88307; 90686

== ENCOUNTER 2022-08-11 14:17 | Inpatient (IN) | payer BC, OTHER ==
[2022-08-11] MEDS ORDERED: CITRIC ACID-SODIUM CITRATE 15 ML CUP PO ONE (15:05)
[2022-08-11] MEDS ORDERED: LACTATED RINGERS 1,000 ML IV ONE (15:30)
[2022-08-11 15:52] LABS: Basophils % (A) 0 %; Eosinophils # (A) 0.2 k/uL (0-0.7); Eosinophils % (A) 2 %; HCT 35.5 % (34.0-46.0); HGB 11.9 gm/dL (11.4-16.0); Lymphocytes # (A) 1.3 k/uL (1.0-4.8); Lymphocytes % (A) 10 %; MCH 30.1 pg (25.0-35.0); MCHC 33.5 g/dL (31.0-37.0); MCV 89.9 fL (80.0-100.0); Mean Platelet Volume 8.8; Monocytes # (A) 0.3 k/uL (0-1.0); Monocytes % (A) 2 %; Neutrophils # (A) 11.3 k/uL (1.3-7.7); Neutrophils % (A) 86 %; Platelet Count 186 k/uL (150-450); RBC 3.94 m/uL (3.80-5.40); RDW 14.4 % (11.5-15.5); WBC 13.2 k/uL (3.8-10.6)
--- NOTE | 2022-08-11 16:48 | P.HPOB ---
History of Present Illness H&P Date: 08/11/22 Chief Complaint: 39-2/7 weeks, previous section, active labor the patient is a 37-year-old 3 para 1011 admitted at 39-2/7 weeks as established by last menstrual period and confirmed by 8 week ultrasound. She is admitted with a history of previous section and has requested repeat section. She is found to be in early active labor having changed her cervix from 1 cm to 3 cm. Upon presentation to labor and delivery, she had spontaneous rupture of membranes of thick meconium-stained fluid. Her was essentially otherwise uncomplicated. She did have chronic hypertension controlled with labetalol and testing was reassuring after 32 weeks and weekly basis. On labor and delivery, all signs reassuring with a category 1 heart rate tracing. Group B strep status is negative. Obstetrical history: 3 para 1011 with 1 term section for arrest of dilation and descent she additionally had an early 6 week miscarriage not requiring D&C. Current statistics are listed in history present il lness. EDC of 08/16/2022 was established by last menstrual period and confirmed by an 8 week ultrasound. Laboratory workup demonstrates a blood type of O+ with a negative antibody screen. Rubella status is immune. The remainder of the laboratory workup was within normal limits. Early Glucola as well as second trimester Glucola were normal and group B strep status is negative. Gynecologic history: Unremarkable with no history of any infections to include STDs. Review of Systems review of systems is confined to history of present illness. Past Medical History Past Medical History: No Reported History, Asthma Additional Past Medical History / Comment(s): Anxiety History of Any Multi-Drug Resistant Organisms: None Reported Additional Past Surgical History / Comment(s): "breast reduction when young", LEEP Past Anesthesia/Blood Transfusion Reactions: No Reported Reaction Smoking Status: Never smoker - Past Family History Mother Family Medical History: Hypertension Father Family Medical History: Cancer Medications and Allergies Home Medications Medication Instructions Recorded Confirmed Type Vit No.180/Iron/Folic 1 cap PO DAILY 09/07/18 08/11/22 History [ Plus Tablet] RX: Albuterol Inhaler [Ventolin 2 puff .ROUTE DIRECTED 09/07/18 08/11/22 History Hfa Inhaler] RX: Labetalol [Trandate] 300 mg PO BID #60 tablet 09/13/18 08/11/22 Rx Allergies Allergy/AdvReac Type Severity Reaction Status Date / Time No Known Allergies Allergy Verified 09/07/18 06:24 Exam Vital Signs Temp Pulse Resp BP Pulse Ox 08/11/22 14:30 97.6 F 82 18 182/89 98 Intake and Output 08/11/22 08/11/22 08/11/22 06:59 14:59 22:59 Other: Weight 92.986 kg in general, this is a well-developed, well-nourished white female in no acute distressthough she is uncomfortable in early active labor. Her heart has a regular rhythm and rate without murmur. Her lungs are clear to auscultation bilaterally in all corcoran. Her abdomen is gravid, nondistended, has normal active bowel sounds, is soft, nontender, and without any palpable masses aside from uterine fundus.her extremities are without any cyanosis, clubbing, or significant edema and are nontender to palpation bilaterally. Digital cervical examination performed by the nursing staff demonstrates her cervix to be 3 cm dilated, 50% effaced, the vertex in presentation at -2 station. Obvious spontaneous rupture of membranes with thick meconium-stained fluid is present. Results Result Diagrams: 08/11/22 15:40 Abnormal Lab Results - Last 24 Hours (Table) 08/11/22 Range/Units 15:40 WBC 13.2 H (3.8-10.6) k/uL Neutrophils # 11.3 H (1.3-7.7) k/uL Assessment and Plan (1) Previous section Current Visit: Yes Status: Acute Code(s): Z98.891 - HISTORY OF UTERINE SCAR FROM PREVIOUS SURGERY SNOMED Code(s): 156041900 (2) Spontaneous rupture of amniotic membranes Current Visit: Yes Status: Acute Code(s): DGH8531 - SNOMED Code(s): 543660072 (3) Active labor at term Current Visit: Yes Status: Acute Code(s): TUT2231 - SNOMED Code(s): 65251194 Plan: the patient was scheduled for repeat low transverse section tomorrow at noon. She presented in labor with ruptured membranes and thick meconium. As a result, we will proceed to the operating room as soon as feasible for repeat low transverse section. It is understood that the patient had something to eat at approximately 1400 today, but given her active labor status, increasing discomfort, ruptured membranes with thick meconium, we will proceed as soon as anesthesia is available.
[2022-08-11] MEDS ORDERED: BUTORPHANOL 1 MG/ML 1 ML VIAL IV PRN (16:49)
[2022-08-11] MEDS ORDERED: MORPHINE SULFATE (PF) 0.3 MG/0.3 ML SYR ONE (17:12)
[2022-08-11] MEDS ORDERED: ONDANSETRON 4 MG/2 ML VIAL ONE (17:12)
[2022-08-11] MEDS ORDERED: OXYTOCIN 30 UNITS/500 ML NS BAG IV ONE (17:12)
[2022-08-11] MEDS ORDERED: KETOROLAC 15 MG/ML 1 ML VIAL ONE (17:12)
[2022-08-11] MEDS ORDERED: ONDANSETRON 4 MG/2 ML VIAL IVP PRN (18:13)
[2022-08-11] MEDS ORDERED: METOCLOPRAMIDE 5 MG/ML 2 ML VIAL IVP PRN (18:13)
[2022-08-11] MEDS ORDERED: SIMETHICONE 80 MG CHEWABLE PO PRN (18:13)
[2022-08-11] MEDS ORDERED: ZOLPIDEM 5 MG TAB PO PRN (18:13)
[2022-08-11] MEDS ORDERED: KETOROLAC 15 MG/ML 1 ML VIAL IVP PRN (18:13)
[2022-08-11] MEDS ORDERED: diphenhydrAMINE 25 MG CAP PO PRN (18:13)
[2022-08-11] MEDS ORDERED: diphenhydrAMINE 50 MG/ML 1 ML VIAL IVP PRN ×2 (18:13)
[2022-08-11] MEDS ORDERED: diphenhydrAMINE 50 MG CAP PO PRN (18:13)
[2022-08-11] MEDS ORDERED: NALOXONE 0.4 MG/ML 1 ML VIAL IV PRN (18:13)
[2022-08-11] MEDS ORDERED: LANOLIN CREAM 5 GM TUBE TOPICAL PRN (18:13)
[2022-08-11] MEDS ORDERED: OXYTOCIN 30 UNITS/500 ML NS 30 UNIT in SALINE 1 500ML.BAG IV SCH (18:15)
--- NOTE | 2022-08-11 18:23 | P.OP ---
Date of Procedure: 08/11/22 Preoperative Diagnosis: #1. 39-2/7 weeks, previous section, requesting repeat #2. Active labor #3. Spontaneous rupture of membranes with thick meconium Postoperative Diagnosis: same Procedure(s) Performed: #1. Repeat low transverse section Anesthesia: spinal Surgeon: Randell Mckeon [employer] Operator #1: Marilee Barfield Estimated Blood Loss (ml): 400 IV fluids (ml): 1,000 Urine output (ml): 500 Pathology: other (placenta) Condition: stable Disposition: floor Operative Findings: please see dictated history and physical for reasoning for proceeding to operating room. The patient was taken the operating room where she was delivered by repeat low transverse section of a viable 6 lbs. 1 oz. baby girl with Apgars of 4 at 1 minute, 8 at 5 minutes, and 9 at 10 minutes. The placenta was delivered manually, intact, and grossly normal but was clearly heavily meconium-stained as was the . There was a grossly normal three- vessel cord. There was a noted odor to the amniotic fluid and products of conception. The uterus, tubes, and ovaries were entirely normal to inspection. There was a moderate to significant amount of scarring at the level of the bladder onto the lower uterine segment which was fairly elevated. Following the procedure, urine was clear as it was during the entire procedure. Description of Procedure: the patient was prepped and draped in usual fashion after spinal anesthesia was administered by the anesthesiologist. A Pfannenstiel incision was made through pre-existing scar and extended into the abdominal cavity without difficulty. There was a moderate amount of scarring at the level of the rectus muscles. After the abdomen and then entered, the bladder peritoneum was noted to be scarred fairly significantly high on the lower uterine segment. Metzenbaum scissors were utilized to dissected sharply and bluntly 2 cm distal to the intended site of incision. The bladder blade was placed. A 2 cm incision was m michelle in the transverse plane of the lower uterine segment to enter the uterus at which time meconium-stained fluid was again noted. The incision was extended in both directions using the bandage scissors. The head was delivered up and through the incision where the nose and mouth were thoroughly suctioned. There was a loose nuchal cord 1 reduced prior to delivery of the body. Remainder of the infant was delivered onto the field where the cord was doubly clamped, cut, and the infant passed resuscitative measures with weight and Apgars as noted above. cord blood was collected. A segment of cord was doubly clamped, cut, and set aside should cord gases become necessary. The placenta was delivered manually and intact as noted above. The uterus was exteriorized and the interior cavity of the uterus swept of any remaining placental or membranous fragments. The margins of the uterine incision were grasped with Barba clamps and the incision closed in 2 layers. The first layer was a running locking stitch of 0 chromic catgut followed by a running imbricating stitch of 0 chromic catgut. Hemostasis appeared excellent. The posterior cul-de-sac was suctioned with a guard and the uterine and ovarian findings are normal as noted above. The uterus was replaced within the abdominal cavity and the gutters were swept of any remaining blood, fluid, or clot. There was some ongoing bleeding noted in the right central portion of the uterine incision which was made hemostatic with a single large [id number] stitch of 0 chromic catgut. After achieving hemostasis, the parietal peritoneum was loosely reapproximated in the layer of muscles made hemostatic with the Bovie. The fascia was closed with 2 running stitches of 0 Vicryl proceeding from the lateral margins to the midpoint. The subcutaneous tissues were irrigated, made hemostatic with the Bovie, and reapproximated with a running stitch of 30 plain catgut. The skin was reapproximated with a running subcuticular stitch of 4-0 Vicryl followed by half-inch Steri-Strips place with Mastisol. Estimated blood loss for the case was 400 mL. There were no complications. All sponge, instrument, needle counts were correct. Both mother and infant are resting comfortably in recovery though the infant has been taken to the special care nursery for presumptive possible infectious concerns.
[2022-08-11] MEDS: LABETALOL 100 MG TAB PO SCH (18:53)
[2022-08-11] MEDS: LACTATED RINGERS 1,000 ML IV SCH (23:00)
[2022-08-12] MEDS: SENNOSIDES-DOCUSATE SODIUM 1 EACH TAB PO SCH ×3 (00:20→20:39)
[2022-08-12] MEDS: ACETAMINOPHEN TAB 500 MG TAB PO SCH ×6 (00:20→23:16)
[2022-08-12] MEDS: LACTATED RINGERS 1,000 ML IV SCH ×6 (02:27→18:32)
[2022-08-12] MEDS: IBUPROFEN 600 MG TAB PO SCH ×4 (02:55→20:38)
--- NOTE | 2022-08-12 06:51 | P.PN ---
Progress Note - Text Progress Note Date: 08/12/22 Postoperative day 1 status post C/S under spinal anesthesia with intrathe lonny Duramorph for postoperative analgesia.The patient is doing well, there is mild generalized skin itching. The patient denies any paresthesia or weakness in the lower extremities There are no other anesthesia related complications. Further management as per the patient primary team.
[2022-08-12 07:30] LABS: Basophils % (A) 0 %; Eosinophils # (A) 0.1 k/uL (0-0.7); Eosinophils % (A) 1 %; HCT 28.5 % (34.0-46.0); Lymphocytes # (A) 1.1 k/uL (1.0-4.8); Lymphocytes % (A) 10 %; MCH 31.3 pg (25.0-35.0); MCHC 33.9 g/dL (31.0-37.0); MCV 92.3 fL (80.0-100.0); Mean Platelet Volume 8.5; Monocytes # (A) 0.2 k/uL (0-1.0); Monocytes % (A) 2 %; Neutrophils # (A) 9.2 k/uL (1.3-7.7); Neutrophils % (A) 86 %; Platelet Count 153 k/uL (150-450); RBC 3.09 m/uL (3.80-5.40); WBC 10.7 k/uL (3.8-10.6)
[2022-08-12 07:31] LABS: HGB 9.7 gm/dL (11.4-16.0)
[2022-08-12] MEDS: LABETALOL 100 MG TAB PO SCH ×2 (08:28→20:39)
--- NOTE | 2022-08-12 09:07 | P.PNOBGPC ---
Subjective - Subjective Patient reports: Reports appetite normal, Reports voiding normally, Reports pain well controlled, Reports ambulating normally : doing well, in NICU Objective - Vital Signs Latest vital signs: Vital Signs Temp Pulse Resp BP Pulse Ox 08/12/22 07:36 97.7 F 73 16 154/75 08/12/22 04:00 98.1 F 87 16 130/74 08/12/22 00:00 98.1 F 75 16 136/75 98 08/11/22 20:16 98.6 F 65 16 153/72 100 08/11/22 19:46 62 16 154/67 100 08/11/22 19:16 61 16 168/78 100 08/11/22 19:01 66 16 100 08/11/22 18:46 67 16 180/87 100 08/11/22 18:31 63 16 178/85 100 08/11/22 18:16 97.4 F L 68 16 172/81 98 08/11/22 14:30 97.6 F 82 18 182/89 98 Intake and Output 08/11/22 08/12/22 08/12/22 22:59 06:59 14:59 Intake Total 1000 Output Total 1350 500 400 Balance -350 -500 -400 Intake: IV 1000 Output: Urine 500 500 400 Uretheral (West) 250 Estimated Blood Loss 400 Output, Quantitative 450 Blood Loss Other: Voiding Method Indwelling Catheter # Voids 1 - Exam Extremities: Present: normal Abdomen: Present: normal appearance, soft. Absent: distention, tenderness Incision: Present: normal, dry, intact Uterus: Present: normal, firm (the uterine fundus as tonic and appropriately tender at the umbilicus.) - Labs Labs: Abnormal Lab Results - Last 24 Hours (Table) 08/11/22 08/12/22 Range/Units 15:40 07:04 WBC 13.2 H 10.7 H (3.8-10.6) k/uL RBC 3.09 L (3.80-5.40) m/uL Hgb 9.7 L D (11.4-16.0) gm/dL Hct 28.5 L (34.0-46.0) % Neutrophils # 11.3 H 9.2 H (1.3-7.7) k/uL Assessment and Plan (1) Previous section Current Visit: Yes Status: Acute Code(s): Z98.891 - HISTORY OF UTERINE SCAR FROM PREVIOUS SURGERY SNOMED Code(s): 352743233 (2) Spontaneous rupture of amniotic membranes Current Visit: Yes Status: Acute Code(s): CNE3322 - SNOMED Code(s): 822875083 (3) Active labor at term Current Visit: Yes Status: Acute Code(s): HVY1002 - SNOMED Code(s): 42334093 (4) Status post section Current Visit: No Status: Acute Code(s): Z98.891 - HISTORY OF UTERINE SCAR FROM PREVIOUS SURGERY SNOMED Code(s): 917457439 Plan: continue routine and postoperative care. As the remains in the nursery, discharge may be delayed from an anticipated time of tomorrow to later pending status. I have strongly encouraged the patient in the hallways otherwise.
--- NOTE | 2022-08-12 20:18 | P.MSEPDOC ---
Presenting Problems - Arrival Data Date of Arrival on Unit: 08/11/22 Time of Arrival on Unit: 15:04 Mode of Transport: Ambulatory - Complaint OB-Reason for Admission/Chief Complaint: Possible Onset of Labor Comment: Contractions since 429, mucous/spotting. Medical History - Information : 2 Para: 1 Term: 0 : 0 Abortions: Spontaneous or Elective: 0 Number of Living Children: 0 - Gestational Age Gestational Age by AMPARO (wks/days): 39 Weeks and 2 Days - History Complications: Prior Review of Systems - Review of Systems Constitutional: No problems Breast: No problems ENT: No problems Cardiovascular: No problems Respiratory: No problems Gastrointestinal: No problems Genitourinary: No problems Musculoskeletal: No problems Neurological: No problems Skin: No problems Vital Signs - Temperature Temperature: 97.4 F Temperature Source: Oral - Pulse Right Sitting Brachial Pulse Rate: 79 Pulse Assessment Method: Pulse Oximetry - Respirations Respiratory Rate: 17 Oxygen Delivery Method: Room Air O2 Sat by Pulse Oximetry: 99 - Blood Pressure Right Arm Blood Pressure: 129/70 Blood Pressure Mean: 89 Blood Pressure Source: Automatic Cuff - Comment Vital Signs Comment: Dr Mckeon in room. aware of elevated bps. pt states her home med of Labetalol 300mg is due now. plan is to give PO labetalol and continue to monitor Medical Screen Scoring - Cervical Exam Dilation (cm): 3 Effacement (%): 50 Station: -2 Membranes: Ruptured - Uterine Contractions Frequency From (mins): 2 Frequency To (mins): 3 Duration From (seconds): 60 Duration To (seconds): 90 Intensity: Moderate Resting: Soft to palpation - Assessment - Baby A Baseline FHR: 130 Heart Rate - NICHD Category: Category I (Normal) NST: Non-reactive Physician Notification - Physician Notified Physician Notified Date: 08/11/22 Physician Notified Time: 15:10 Physician: Randell Mckeon New Order Received: Yes - Notification Comment Comment: Admit for repeat section Maternal Triage Index - Maternal Triage Index Presenting for scheduled procedure w/no complaint: No - Stat/Priority 1 Stat Priority 1: No - Urgent/Priority 2 Urgent Priority 2: Yes Provider Notified: Randell Mckeon Provider Notified Time: 15:10 Criteria Met for Priority 2: kimani, BP elevated, SROM in triage mec fluid, repeat cs Disposition - Disposition OB Disposition: Admit Discharge Date: 08/11/22 Discharge Time: 15:15 I agree with the RN Medical Screening Exam: Yes Case reviewed; plan agreed upon as documented in EMR&OBIX.: Yes Diagnosis: RELATED CONDITIONS, UNSPECIFIED, THIRD TRIMESTER
[2022-08-13] MEDS: IBUPROFEN 600 MG TAB PO SCH ×2 (00:34→04:18)
[2022-08-13] MEDS: SENNOSIDES-DOCUSATE SODIUM 1 EACH TAB PO SCH (08:49)
[2022-08-13] MEDS: LABETALOL 100 MG TAB PO SCH (08:49)
[2022-08-13] MEDS: ACETAMINOPHEN TAB 500 MG TAB PO SCH (08:52)
[2022-08-13 09:21] VITALS: BP 144/73; PULSE 95; RESP 14; TEMP 98.5
--- NOTE | 2022-08-13 11:43 | P.DS ---
Providers Date of admission: 08/11/22 14:52 Expected date of discharge: 08/13/22 Attending physician: Randell Mckeon Primary care physician: Stated None - Discharge Diagnosis(es) (1) Previous section Current Visit: Yes Status: Acute (2) Spontaneous rupture of amniotic membranes Current Visit: Yes Status: Acute (3) Active labor at term Current Visit: Yes Status: Acute (4) Status post section Current Visit: No Status: Acute Hospital Course: the patient is a 37-year-old 3 para 1011 admitted at 39-2/7 weeks by good dating parameters perches admitted with a history of a previous section and requested a repeat section. She was scheduled for the day after presentation. She presented in active labor having changed her cervix from 1 cm to 3 cm and, while in triage, had spontaneous rupture of membranes for meconium-stained fluid. The heart rate tracing was category 1. She was taken to the operating room where she was delivered by repeat low transverse section of a viable 6 lbs. 1 oz. baby girl with Apgars of 4 at 1 minute 8 at 5 minutes and 9 at 10 minutes. The patient's postoperative course was unremarkable with vital signs remained stable and her temperature was afebrile throughout. She was deemed stable for discharge on postoperative day #2 and was discharged home to follow-up in the office in 2 weeks for an incision check and 6 weeks routinely. Discharge instructions included calling for any significantly increased bleeding or foul-smelling lochia, significantly incr eased fever abdominal pain, perineal complaints, breast complaints, incisional complaints, or anything else that concerned her. She is additionally instructed to have nothing in vagina for at least 6 weeks time to include intercourseand to abstain from any heavy lifting over the same period of time. She is less instructed to do no driving until off of all pain medications or 2 weeks' time, whichever came first. She understood all of her instructions and agrees to follow up as noted above. Discharge medications included continued vitamins as she intends to breast-feed at least for a short time. She additionally was provided with prescription for Ola 5/325 mg, 1-2 by mouth every 6 hours when necessary pain, #20 dispensed with no refills. Maternal blood type is O+ and rubella status is immune. Discharge hemoglobin and hematocrit were 9.7 and 28.5 respectively. The infant remains in the special care nursery for monitoring for possible infection. Procedures: #1. Repeat low transverse section Patient Condition at Discharge: Stable Plan - Discharge Summary New Discharge Prescriptions: No Action Vit No.180/Iron/Folic [ Plus Tablet] 1 cap PO DAILY Albuterol Inhaler [Ventolin Hfa Inhaler] 2 puff .ROUTE DIRECTED Labetalol [Trandate] 300 mg PO BID #60 tablet Discharge Medication List Albuterol Inhaler [Ventolin Hfa Inhaler] 2 puff .ROUTE DIRECTED 09/07/18 [History] Vit No.180/Iron/Folic [ Plus Tablet] 1 cap PO DAILY 09/07/18 [History] Labetalol [Trandate] 300 mg PO BID #60 tablet 09/13/18 [Rx] Follow up Appointment(s)/Referral(s): Randell Mckeon MD [STAFF PHYSICIAN] - 2 Weeks Discharge Disposition: HOME SELF-CARE
== END 2022-08-13 12:05 | disposition home or self-care (01) | DRG 788 ==
LOC: FBPOP 14:17 → 4FBP 14:52
PROVIDERS: ADMIT Obstetrics & Gynecology; ATTEND Obstetrics & Gynecology
PROC: 10D00Z1 Extraction of Products of Conception, Low, Open Approach (ICD-10-PCS; principal; 2022-08-11 17:25)
DX: O34.211 Maternal care for low transverse scar from previous cesarean delivery (principal); O77.0 Labor and delivery complicated by meconium in amniotic fluid; Z37.0 Single live birth; Z3A.39 39 weeks gestation of pregnancy; Z79.899 Other long term (current) drug therapy; Z82.49 Family history of ischemic heart disease and other diseases of the circulatory system
CPT/HCPCS: 59025; 85025; 86850; 86900; 86901; 88307; 99213